=== PATIENT | male | born 1950 | race Caucasian/White ===

== ENCOUNTER → 2016-06-14 | Outpatient (CLI) | payer MEDICARE, MEDICAID ==
[~2016-06-14] MED LIST: COLA100C PO; FOLI1TAB2 PO; LOVE1INJ2 SC; MAG400TA PO; MAPA325T2 PO; NEUTPW PO; PANT40TA2 PO; Thiamine Hcl PO; VITA-193 PO; VITMTA PO
--- NOTE | 2016-06-15 12:39 | RADONC ---
RADIATION ONCOLOGY FOLLOWUP NOTE DATE: 06/14/2016 CHART NUMBER: [id number]. DIAGNOSIS: Floor of mouth squamous cell carcinoma. STAGE: I, T1N0M0. ECOG PERFORMANCE STATUS: 3 FOLLOWUP NOTE: Mr. 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 The patient presents today reporting that he is doing quite well with no complaints at this time related to his radiation therapy or disease. He is now, as noted above, here for simple followup 6 years post completion of treatment at another center. REVIEW OF SYSTEMS: The patient's review of systems is positive for physical limitations, but is negative for any tenderness or difficulty swallowing. He has no weight loss or other problems related to his oral cavity. He denies nausea, vomiting, fevers, chills, night sweats, diplopia, headaches, anxiety or depression, anorexia, weight loss, visual disturbances, chest pain, urinary or bowel difficulties, or bone pain. PHYSICAL EXAMINATION The patient is a well-developed, well-nourished white male in no acute distress who is presenting a wheelchair. HEENT: Exam is normocephalic, atraumatic. Extraocular movements are intact. The patient is edentulous. His oral cavity reveals no evidence of nodularity, ulceration, residual, or recurrent disease. There is no evidence of xerostomia. I do not appreciate any disease in the oropharynx. Laryngoscopic examination was deferred. There is no palpable preauricular, cervical, supraclavicular, infraclavicular or axillary lymphadenopathy present. His lungs are clear to auscultation and percussion. ASSESSMENT: The patient is clinically ELZA at this point, now 6 years post completion of therapy. We have scheduled him to see us again in 1 year for further followup. cc: Broderick Sibley *Anthony Villanueva MD
== END ==
LOC: M ONCR 09:54
PROVIDERS: ATTEND Radiology Radiation Oncology
DX: C06.9 Malignant neoplasm of mouth, unspecified (principal)

== ENCOUNTER → 2018-11-18 | Outpatient (REF) | payer MEDICARE, MEDICAID ==
[~2018-11-18] MED LIST changes: -COLA100C PO; +COLA100C5 PO; +CYAN500T9 PO; +FOLI1TAB11 PO; -FOLI1TAB2 PO; -PANT40TA2 PO; +PANT40TA3 PO; -VITA-193 PO
[2018-11-18 15:50] LABS: HEMATOCRIT 44.2 % (42.0-52.0); HEMOGLOBIN 14.6 g/dl (13.5-17.5); MEAN CORPUSCULAR HEMOGLOBIN 28.3 pg (27.0-33.0); MEAN CORPUSCULAR VOLUME 85.8 fl (80.0-96.0); PLATELET COUNT, AUTOMATED 455 10^3/uL (150-450); RED BLOOD COUNT 5.15 10^6/uL (4.30-6.10); WHITE BLOOD COUNT 11.7 10^3/uL (4.0-10.0)
[2018-11-18 16:24] LABS: BLOOD UREA NITROGEN 14 MG/DL (7-18); CALCIUM LEVEL 9.2 MG/DL (8.8-10.2); CARBON DIOXIDE LEVEL 32 MEQ/L (21-32); CHLORIDE LEVEL 95 MEQ/L (98-107); CREATININE FOR GFR 0.92 MG/DL (0.70-1.30); GLOMERULAR FILTRATION RATE > 60.0 (>49); GLUCOSE, FASTING 95 MG/DL (70-100); POTASSIUM SERUM 4.2 MEQ/L (3.5-5.1); SODIUM LEVEL 133 MEQ/L (136-145)
--- NOTE | 2018-11-18 19:23 | REP ---
Chest x-ray: Single view. History: Pneumonia. Comparison chest x-ray March 27, 2015. Findings: The lungs are exposed at a lesser level of inspiration. There is a transversely oriented fracture through the posterolateral 6th rib on the right. This was not previously apparent. Age indeterminate. There are increased markings in the left base behind the heart adjacent to the diaphragm. This could be a early infiltrate. Lung brunner are otherwise clear. There is no evidence of pneumothorax or hydrothorax. Impression: Low level of inspiration. Increased markings left base may reflect early infiltrate. Transversely oriented fracture right posterolateral 6th rib. Age indeterminate. Electronically Signed by Calvin Payne MD 11/18/2018 07:59 P
== END ==
LOC: SKLAB2 15:11
PROVIDERS: ATTEND Family Medicine
DX: R09.02 Hypoxemia (principal); S22.31XA Fracture of one rib, right side, initial encounter for closed fracture; Y92.89 Other specified places as the place of occurrence of the external cause; Y93.89 Activity, other specified; Y99.2 Volunteer activity; X58.XXXA Exposure to other specified factors, initial encounter

== ENCOUNTER → 2019-01-22 | Outpatient (CLI) | payer MEDICARE ==
[~2019-01-22] MED LIST changes: +ISOVUE-370 76% 100ML VIAL (Q9967) As Ordered ONE
--- NOTE | 2019-01-22 15:59 | REP ---
CT neck soft tissues: 01/22/2019. Indication: Neck mass. Comparison: None. Technique: Axial images of the neck soft tissues were obtained with coronal and sagittal reconstructions provided. Post contrast imaging following IV administration of 100 ml Isovue 370. Findings: There is a soft tissue mass that extends from the inferior aspect of the lingular tonsils to the level of the glottis, slightly more pronounced on the left. There is no utilization of the left vocal cord indicative of paralysis. The neoplasm appears to invade the epiglottis and extends into the right greater than left aryepiglottic folds. There is erosion of the hyoid bone as well as the thyroid cartilage. Tumor appears to involve the anterior commissure. No definite extension beyond the pharyngeal mucosal space into the parapharyngeal space is detected. There is no evidence of significant cervical lymphadenopathy. The submandibular and parotid glands are without focal abnormality. Bilateral carotid atherosclerotic disease is present. Lytic lesions of the clivus and cervical thoracic spine are present. Suspect for osseous metastases. Whole-body bone scan may be considered. Please see dedicated chest CT report for additional details. Impression: Glottic and supraglottic mass with extension into the lingular tonsils with left-sided vocal cord paralysis. Suspected osseous metastases as described. Electronically Signed by Dustin Webster DO 01/22/2019 03:50 P
--- NOTE | 2019-01-22 19:08 | REP ---
CT chest with IV contrast: History: Mass on the laryngeal surface of the epiglottis. Left vocal cord paralysis. CT contrast dose: 100 ml of intravenous Isovue [address] findings: There is no visible supra clavicular adenopathy. No axillary adenopathy is seen. Vascular calcification is noted along the course the coronary arteries. There is no evidence of pleural or pericardial effusion. No hilar or mediastinal mass or adenopathy is observed. There is no evidence of aortic aneurysm or dissection. No pulmonary embolus is appreciated. Lung window settings show a 5 mm no noncalcified pulmonary nodule in the right lower lobe. This is visible on page 55 of 98 in series 404 of today's exam. There is a pleural-based 8 mm nodule in the left lower lobe adjacent to the major fissure visible on page 53 of 98 of the same study. Its long axis is best seen on the coronal multiplanar re-formation sequence. No other pulmonary nodule is seen. No mass lesion or infiltrate is appreciated. On bone window settings, there is a healing rib fracture on the right. No bony destructive lesion is appreciated. No adrenal lesion is seen. The visualized upper abdominal structures are unremarkable. Impression: There is an 8 mm noncalcified pulmonary nodule in the left lower lobe adjacent to the major fissure. There is a 5 mm noncalcified pulmonary nodule in the right lower lobe. There is a healing right-sided rib fracture. Vascular calcifications noted. Otherwise no acute disease. Electronically Signed by Calvin Payne MD 01/23/2019 06:19 P
== END ==
LOC: M RAD 14:43
PROVIDERS: ATTEND Otolaryngology
DX: D38.0 Neoplasm of uncertain behavior of larynx (principal); J38.00 Paralysis of vocal cords and larynx, unspecified
CPT/HCPCS: 70491; 71260; Q9967

== ENCOUNTER → 2019-01-25 | Outpatient (REF) | payer MEDICARE ==
[~2019-01-25] MED LIST changes: -ISOVUE-370 76% 100ML VIAL (Q9967) As Ordered ONE
--- NOTE | 2019-01-25 12:17 | ECGEPIP ---
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
== END ==
LOC: M EKG 11:45
PROVIDERS: ATTEND Family Medicine
DX: Z01.818 Encounter for other preprocedural examination (principal); R22.1 Localized swelling, mass and lump, neck

== ENCOUNTER 2019-01-29 05:48 | Day surgery (SDC) | payer MEDICARE ==
[~2019-01-29] VITALS: Ht 172.7 cm; Wt 58.1 kg
[2019-01-29] MEDS ORDERED: dexameTHASONE 4 MG/ML 1ML VIAL (J1100) IV ONE (06:00)
[2019-01-29] MEDS ORDERED: LR 1,000 ML IV ONE (06:00)
[2019-01-29] MEDS ORDERED: LIDOCAINE W/EPINEPHRINE 1% 20ML VIAL As Ordered ONE (06:52)
[2019-01-29] MEDS ORDERED: OXYMETAZOLINE NASAL SPRAY (AFRIN) As Ordered ONE (06:52)
[2019-01-29] MEDS ORDERED: METHYLENE BLUE 0.5% (5MG/ML) 10 ML AMP (PROVAYBLUE)(Q9968 PER 1MG) As Ordered ONE (06:52)
[2019-01-29] MEDS ORDERED: ROCURONIUM BROMIDE 50 MG/5 ML VIAL As Ordered ONE (07:46)
[2019-01-29] MEDS ORDERED: fentaNYL 100 MCG/2 ML INJECTION (J3010) As Ordered ONE ×2 (07:46→08:03)
[2019-01-29] MEDS ORDERED: LIDOCAINE 2% INJ 100 MG/5 ML SDV (FOR ANES.) As Ordered ONE (07:46)
[2019-01-29] MEDS ORDERED: PROPOFOL 200 MG/20 ML VIAL As Ordered ONE (07:46)
[2019-01-29] MEDS ORDERED: MIDAZOLAM INJ 2 MG/2 ML VIAL (J2250) As Ordered ONE (07:46)
[2019-01-29] MEDS ORDERED: ONDANSETRON 4MG/2ML VIAL (J2405) As Ordered ONE (07:46)
[2019-01-29] MEDS ORDERED: SUCCINYLCHOLINE 100 MG/5 ML SYRINGE (J0330) As Ordered ONE (07:57)
[2019-01-29] MEDS ORDERED: SUGAMMADEX SODIUM 500 MG/5 ML VIAL (BRIDION) As Ordered ONE (08:09)
[2019-01-29] MEDS ORDERED: LR 1,000 ML IV SCH ×2 (09:00→10:00)
[2019-01-29] MEDS ORDERED: HYDROMORPHONE HCL 0.5 MG/ 0.5 ML SYRINGE (J1170 PER 1) IV PRN (09:00)
[2019-01-29] MEDS ORDERED: fentaNYL 100 MCG/2 ML INJECTION (J3010) IV PRN (09:00)
[2019-01-29] MEDS ORDERED: ONDANSETRON 4MG/2ML VIAL (J2405) IV PRN (09:00)
[2019-01-29] MEDS ORDERED: PERCOCET 5MG/325MG TAB PO PRN (09:00)
[2019-01-29] MEDS ORDERED: LABETALOL HCL 100 MG/20 ML VIAL As Ordered ONE (09:10)
[2019-01-29] MEDS ORDERED: hydrALAZINE INJ 20 MG/ML VIAL IV SCH (09:30)
[2019-01-29] MEDS ORDERED: LABETALOL HCL 100 MG/20 ML VIAL IV SCH (09:30)
[2019-01-29 09:44] VITALS: BP 152/70
--- NOTE | 2019-01-29 14:00 | RO ---
DATE OF OPERATION: 01/29/2019 PREOPERATIVE DIAGNOSES: Dysphonia and epiglottic mass. POSTOPERATIVE DIAGNOSES: Dysphonia and epiglottic mass. PROCEDURE PERFORMED: Direct suspension microlaryngoscopy with biopsy of the epiglottis, base of tongue and the supraglottic mass. SURGEON: Rolan Patton MD HEARING AID FITTER: ANESTHESIA: General. CLINICAL PREAMBLE: This 68-year-old man presented to the office with a two month history of progressive worsening of hoarseness. Flexible laryngoscopy revealed a mass on the epiglottis extending down to the supraglottic area and involving the left vocal cord. Management options including direct suspension microlaryngoscopy with biopsy have been discussed. The patient understood and consented to the procedure. INTRAOPERATIVE FINDINGS: Large palpable mass, right base of tongue mass on the laryngeal surface of the epiglottis. Mass on the left and the right aryepiglottic folds, and a mass on the left vocal cord. OR NARRATION: Patient was identified in the preop holding and brought to the operating room in stable condition. In supine position on the operating room table, the patient received general anesthesia followed by orotracheal intubation without incident. The patient was prepped and draped in the usual fashion for the procedure. Bimanual palpation of the oral tongue, base of tongue, and outer pharyngeal wall revealed a large firm mass in the right base of tongue encroaching to the midline position. The upper alveolus was then protected using a moist sponge. Using the Dedo-Pilling laryngoscope, inspection of the oral cavity, oropharynx, supraglottis and glottis was carried out. Mass was noted in the right base of tongue, laryngeal surface of the epiglottis, left and right aryepiglottic folds, with the mass extending down to the left vocal cord region. Biopsies were then obtained from the right and left aryepiglottic folds, laryngeal surface of the epiglottis, left vocal cord and the right base of tongue regions. Hemostasis was achieved by placing cottonoid pledgets soaked in Afrin solution. At the end of the procedure, sponge and instrument counts were correct. No complications were encountered. Estimated blood loss was approximately 5 mL. General anesthesia was reversed and the patient was extubated and brought to the recovery room in stable condition.
== END 2019-01-29 10:41 | disposition home or self-care (01) ==
LOC: M SDC 05:48
PROVIDERS: ATTEND Otolaryngology
DX: C32.0 Malignant neoplasm of glottis (principal); C02.9 Malignant neoplasm of tongue, unspecified; R49.0 Dysphonia; N18.9 Chronic kidney disease, unspecified; E87.6 Hypokalemia; F10.20 Alcohol dependence, uncomplicated; Z87.891 Personal history of nicotine dependence
CPT/HCPCS: 31535; 88305; 88307; J0330; J1100; J2250; J2405; J3010; Q9968

== ENCOUNTER → 2019-02-18 | Outpatient (CLI) | payer MEDICARE ==
--- NOTE | 2019-02-19 10:27 | RADONC ---
RADIATION ONCOLOGY CONSULTATION NOTE DATE: 02/18/2019 CHART NUMBER: [id number] DIAGNOSIS: Base of tongue cancer. STAGE: IVC, T4A,pNx, M1, p16 negative. ECOG PERFORMANCE STATUS: 2. CONSULTATION NOTE: Mr. 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 He has had previous radiation for oral tongue carcinoma in [place] and has now been found to have these lesions and is presenting to us today to see if there is any possibility to deliver definitive radiation therapy since he has refused surgery. 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 Apparently at that time he underwent surgical resection followed by postoperative radiation therapy for a dose of 6000 cGy. 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 He underwent hyperbaric oxygen treatments with some healing. I initially saw the patient in consultation on 06/08/2015 for routine followup visit and at that time he had no evidence of disease. We did then obtain his radiation records from [place]. I again saw the patient on June 14, 2016 and once again he reported no problems. He had healed up from his osteonecrosis and was doing well. The patient is now 8 years post treatment for his original floor of mouth cancer. He was found to have discomfort in his throat with some hoarseness and on 01/22/[address] scan of the soft tissues of the neck. This revealed a soft tissue mass that extended from the inferior aspect of the lingular tonsils to the level of the glottis. This was slightly more pronounced on the left side. There was no utilization of the left vocal cord indicative of paralysis. The neoplasm appeared to invade the epiglottis and extend into the right greater than the left aryepiglottic folds, but it was bilateral. In addition, there was erosion of the hyoid bone as well as of the thyroid cartilage. The tumor appeared to involve the anterior commissure as well. There was no evidence of significant cervical lymphadenopathy. There were however lytic lesions in the clivus as well as in the cervical, thoracic spine present most suspicious for osseous metastasis. In addition on 01/22/[address] the patient [address] a CT scan of the chest which showed an 8 mm noncalcified pulmonary nodule in the left lower lobe adjacent to the major fissure. There was also a 5 mm noncalcified pulmonary nodule in the right lower lobe. On 01/29/2019 the patient underwent examination and biopsies. He underwent biopsies of the right aryepiglottic fold region as well as the left aryepiglottic fold region. The epiglottis was biopsied as well as the left vocal cord and the right base of tongue. All biopsy specimens showed invasive squamous cell carcinoma. The tumor was p16 negative . The patient was seen by Dr. Rolan Patton, the head and neck surgeon and refused any surgery. He is now presenting for consultation regarding the possibility of some type of re-radiation. PAST MEDICAL HISTORY: The patient's past medical history is positive for bronchitis and a stroke. He has a history of alcohol abuse and malnutrition as well as COPD, hypokalemia and acute renal failure. ALLERGIES: The patient has no known drug allergies. SOCIAL HISTORY: The patient reports that he drinks beer daily. REVIEW OF SYSTEMS: The patient's review of systems is positive for difficulties chewing and swallowing but is otherwise noncontributory. He denies nausea, vomiting, fevers, chills, night sweats, diplopia, headaches, anxiety or depression, anorexia, weight loss, visual disturbances, chest pain, urinary or bowel difficulties, bone pain, or neurological problems. PHYSICAL EXAMINATION: The patient is a chronically ill-appearing white male in no acute distress. Further physical examination was deferred at this point. 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 At this point we are dealing with locally advanced cancer which appears to be invading the hyoid bone and thyroid cartilage as well as extending from the base of tongue down through the glottic larynx. In addition there are indications of possible lung metastasis as well as perhaps bone metastasis at the base of skull. I have reviewed the patient's previous radiation records and he has already received a dose of 6000 cGy to the oral cavity and mandible. Indeed he received enough radiation at that time to lead to radio osteonecrosis. I did discuss with the patient that further radiation at this point would not be possible. In order to control this level of disease he would need 7000 cGy which would bring the throat mandible and oral cavity to a total of approximately 13 to 14,000 cGy. Clearly this is not a reasonable alternative. I do agree with the patient's decision not to undergo surgery. Surgical excision even if it were to be attempted would be horrific. In light of this I have recommended either palliative care and a consultation with medical oncology. I explained to the patient that this would not be curative in intent, but perhaps some systemic therapy may give him even some quality time. I explained to him that those would be his choices either palliative care or possibly a discussion of systemic therapy. I will of course defer to the expertise of the medical oncologist and the patient's decision with regards to systemic therapy. Indeed this is not a curative treatment and it is a very personal decision. I asked on multiple occasions if the patient would like me to set up a consultation with our medical oncologist, but he did not respond to that. I have given him my phone number here and let them know that he can call at anytime if he would like a referral to medical oncology. He is residing here in our facility at [facility] and therefore it would not be too intrusive to walk him on over to discuss any possible treatments with medical oncology at anytime. I asked him to please reconsider that. In light of the fact that we are unable to treat this gentleman I have not set him up with any followup in our office at this time. Once again thank you for allowing us to participate in the discussion. As always with warm regards. cc: Rolan Patton MD
== END ==
LOC: M ONCR 12:55
PROVIDERS: ATTEND Radiology Radiation Oncology
DX: C01 Malignant neoplasm of base of tongue (principal); Z92.3 Personal history of irradiation

== ENCOUNTER → 2019-04-27 | Outpatient (REF) | payer MEDICARE ==
--- NOTE | 2019-04-27 23:35 | REPVR ---
PROCEDURE INFORMATION: Exam: XR Chest, 1 View Exam date and time: 04/27/2019 11:03 PM Age: 68 years old Clinical indication: Sternal or substernal pain; Additional info: Pain at 2nd intercostal space TECHNIQUE: Imaging protocol: XR of the chest Views: 1 view. COMPARISON: CR Chest, 1 view 2018-11-18 15:23 FINDINGS: Lungs: Left lower lung infiltrates. Pleural space: Unremarkable. No pleural effusion. No pneumothorax. Heart/Mediastinum: Unremarkable. No cardiomegaly. Bones/joints: Unremarkable. IMPRESSION: Left lower lung infiltrates. Electronically signed by: Elton Royal On 04/27/2019 23:35:21 PM
== END ==
LOC: SKLAB2 21:35
PROVIDERS: ATTEND Family Medicine
DX: R91.8 Other nonspecific abnormal finding of lung field (principal); R07.82 Intercostal pain